=== PATIENT | male | born 1990 | race Caucasian/White ===

== ENCOUNTER 2020-04-01 20:43 | Emergency (ER) | payer SELFPAY ==
[~2020-04-01] VITALS: Ht 167.6 cm; Wt 86.2 kg
[2020-04-01 21:12] VITALS: Ht 167.6 cm; Wt 86.2 kg
[2020-04-01 21:50] VITALS: BP 155/111
== END 2020-04-01 21:50 | disposition home or self-care (01) ==
LOC: ED 20:43
DX: U07.1 COVID-19 (principal); B34.9 Viral infection, unspecified
CPT/HCPCS: U0003-CS